=== PATIENT | female | born 1955 | race Caucasian/White ===

== ENCOUNTER 2024-08-12 15:09 | Emergency (ER) | payer MEDICARE ==
[~2024-08-12] VITALS: Ht 165.1 cm; Wt 68.0 kg
[2024-08-12 18:09] VITALS: BP 150/77
[2024-08-12] MEDS ORDERED: TRAMADOL HYDROC50 M1 PO (18:24)
[2024-08-12] MEDS ORDERED: AMOX/K CLAV875 M1 PO (18:24)
[2024-08-12] MEDS ORDERED: FLOXIN OTIC0.3 % AU (18:24)
[2024-08-12] MEDS ORDERED: LEVOCETIRIZINE D5 MG PO (18:24)
== END 2024-08-12 18:28 | disposition home or self-care (01) ==
LOC: ED 15:09
DX: H60.91 Unspecified otitis externa, right ear (principal); H66.92 Otitis media, unspecified, left ear; J32.9 Chronic sinusitis, unspecified; I48.91 Unspecified atrial fibrillation; E05.00 Thyrotoxicosis with diffuse goiter without thyrotoxic crisis or storm